=== PATIENT | male | born 1940 | race Hispanic/Latino ===

== ENCOUNTER 2022-02-12 09:10 | Inpatient (IN) | payer OTHER, MEDICARE ==
[2022-02-12] MEDS ORDERED: Sodium Chloride 0.65% Nasal 44 ML BOT EA NARE PRN (12:34)
[2022-02-12] MEDS ORDERED: Acetaminophen 650 MG Suppository PR PRN ×2 (12:34)
[2022-02-12] MEDS ORDERED: Promethazine HCl 25 MG SUPP PR PRN (12:34)
[2022-02-12] MEDS ORDERED: Bisacodyl 10 MG SUPP PR PRN (12:34)
[2022-02-12] MEDS ORDERED: Benzonatate 100 MG CAP PO PRN (12:34)
[2022-02-12] MEDS ORDERED: Cepastat Lozenges 1 LOZ PO PRN (12:34)
[2022-02-12] MEDS ORDERED: Senokot S 8.6-50 MG TAB PO PRN (12:34)
[2022-02-12] MEDS ORDERED: Calcium Carbonate 500 MG ChewTAB PO PRN (12:34)
[2022-02-12] MEDS ORDERED: Dextrose 50% Abboject 50 ML SYRINGE SLOW IVP PRN (12:34)
[2022-02-12] MEDS ORDERED: Bisacodyl 5 MG TAB PO PRN (12:34)
[2022-02-12] MEDS ORDERED: Ondansetron ODT 4 MG TAB PO PRN (12:34)
[2022-02-12] MEDS ORDERED: Artificial Tear Sol 15 ML BOT EA EYE PRN (12:34)
[2022-02-12] MEDS ORDERED: Guaifenesin DM 100-10/5 ML UDCUP PO PRN (12:34)
[2022-02-12] MEDS: Insulin Regular 300 UNITS/3 ML VIAL SC PRN (17:57)
[2022-02-12] MEDS: NIRMATRELVIR PO SCH (20:48)
[2022-02-12] MEDS: RITONAVIR PO SCH (20:48)
[2022-02-12] MEDS ORDERED: Atorvastatin Calcium 40 MG TAB PO SCH (21:00)
[2022-02-13 06:19] LABS: ALT (SGPT) 49 U/L (8-55); AST (SGOT) 30 U/L (5-34); Albumin 3.6 g/dL (3.4-4.8); Alkaline Phosphatase 92 U/L (40-110); Anion Gap 13 mmol/L (10-20); BUN (Urea Nitrogen) 31 mg/dL (8.4-25.7); Bilirubin, Total 0.5 mg/dL (0.2-1.2); Calc. Creatinine Clearance 26 mL/min (70-130); Calcium 9.4 mg/dL (7.8-10.44); Carbon Dioxide 22 mmol/L (23-31); Chloride 113 mmol/L (98-107); Estimated GFR 37; Globulin 3.2 g/dL (2.4-3.5); Glucose 133 mg/dL (83-110); Potassium 4.2 mmol/L (3.5-5.1); Protein, Total 6.8 g/dL (5.8-8.1); Sodium 144 mmol/L (136-145)
[2022-02-13 06:22] LABS: #Basophils 0.1 thou/uL (0.0-0.2); #Eosinphils 0.2 thou/uL (0.0-0.7); #Lymphocytes 2.1 thou/uL (1.20-3.40); #Monocytes 0.4 thou/uL (0.11-0.59); #Neutrophils 5.7 thou/uL (1.40-6.50); %Basophils 1.1 % (0.0-1.0); %Eosinophils 2.4 % (0.0-10.0); %Lymphocytes 24.4 % (21.0-51.0); %Monocytes 4.5 % (0.0-10.0); %Neutrophils 67.6 % (42.0-75.0); Hemoglobin 13.9 g/dL (14.0-18.0); Mean Corpuscular Hemoglobin 28.9 pg (27.0-31.0); Mean Platelet Volume 7.5 fL (7.4-10.4); Platelet Count 274 thou/uL (130-400); RBC Distribution Width 14.1 % (11.5-14.5); White Blood Cell (WBC) Count 8.4 thou/uL (4.8-10.8)
[2022-02-13] MEDS: Aspirin Chewable 81 MG TAB PO SCH ×2 (07:45→08:07)
[2022-02-13] MEDS: Enoxaparin Sodium 30 MG/0.3 ML SYRINGE SC SCH (08:06)
[2022-02-13] MEDS: Lisinopril 10 MG TAB PO SCH (08:06)
[2022-02-13] MEDS: NIRMATRELVIR PO SCH ×2 (08:09→19:59)
[2022-02-13] MEDS: RITONAVIR PO SCH ×2 (08:09→19:59)
[2022-02-13] MEDS: Insulin Regular 300 UNITS/3 ML VIAL SC PRN ×3 (11:20→20:07)
[2022-02-14] MEDS ORDERED: Dextrose 5% in Water 1,000 ML IV PRN (06:30)
[2022-02-14] MEDS: Lisinopril 10 MG TAB PO SCH (07:45)
[2022-02-14] MEDS: Enoxaparin Sodium 30 MG/0.3 ML SYRINGE SC SCH (07:45)
[2022-02-14] MEDS: Aspirin Chewable 81 MG TAB PO SCH (07:45)
[2022-02-14] MEDS: NIRMATRELVIR PO SCH ×2 (07:46→21:08)
[2022-02-14] MEDS: RITONAVIR PO SCH ×2 (07:46→21:08)
[2022-02-14] MEDS: HumaLOG 300 UNITS/3 ML VIAL SC PRN ×3 (12:03→21:09)
[2022-02-15] MEDS: HumaLOG 300 UNITS/3 ML VIAL SC PRN (05:29)
[2022-02-15] MEDS: Enoxaparin Sodium 30 MG/0.3 ML SYRINGE SC SCH (07:56)
[2022-02-15] MEDS: Lisinopril 10 MG TAB PO SCH (07:58)
[2022-02-15] MEDS: Aspirin Chewable 81 MG TAB PO SCH (07:58)
[2022-02-15] MEDS: NIRMATRELVIR PO SCH ×2 (08:00→21:01)
[2022-02-15] MEDS: RITONAVIR PO SCH ×2 (08:00→21:01)
[2022-02-15] MEDS: Acetaminophen 325 MG TAB PO PRN ×2 (08:08→16:59)
[2022-02-16] MEDS: Aspirin Chewable 81 MG TAB PO SCH (09:04)
[2022-02-16] MEDS: Enoxaparin Sodium 30 MG/0.3 ML SYRINGE SC SCH (09:04)
[2022-02-16] MEDS: Lisinopril 10 MG TAB PO SCH (09:05)
[2022-02-16] MEDS: HumaLOG 300 UNITS/3 ML VIAL SC PRN ×2 (12:11→17:07)
[2022-02-17] MEDS: Enoxaparin Sodium 30 MG/0.3 ML SYRINGE SC SCH (07:53)
[2022-02-17] MEDS: Aspirin Chewable 81 MG TAB PO SCH (07:55)
[2022-02-17] MEDS: Lisinopril 10 MG TAB PO SCH (10:11)
[2022-02-17] MEDS: Acetaminophen 325 MG TAB PO PRN (10:34)
[2022-02-17] MEDS: HumaLOG 300 UNITS/3 ML VIAL SC PRN (12:32)
[2022-02-17] MEDS ORDERED: Ondansetron ODT 4 MG TAB SL PRN (14:00)
[2022-02-18] MEDS: HumaLOG 300 UNITS/3 ML VIAL SC PRN ×4 (06:24→19:58)
[2022-02-18] MEDS: Lisinopril 5 MG TAB PO SCH (07:53)
[2022-02-18] MEDS: Aspirin Chewable 81 MG TAB PO SCH (07:53)
[2022-02-18] MEDS: Enoxaparin Sodium 30 MG/0.3 ML SYRINGE SC SCH (07:53)
[2022-02-18 09:01] LABS: %Basophils 0.8 % (0.0-1.0); %Eosinophils 3.5 % (0.0-10.0); %Lymphocytes 22.2 % (21.0-51.0); %Monocytes 4.6 % (0.0-10.0); Hemoglobin 13.6 g/dL (14.0-18.0); Mean Corpuscular HGB CONC 30.2 g/dL (32.0-36.0); Mean Corpuscular Hemoglobin 29.1 pg (27.0-31.0); Mean Corpuscular Volume 96.3 fL (78.0-98.0); Mean Platelet Volume 9.3 fL (7.4-10.4); Platelet Count 211 thou/uL (130-400); RBC Distribution Width 14.5 % (11.5-14.5); Red Blood Cell (RBC) Count 4.66 mill/uL (4.70-6.10); White Blood Cell (WBC) Count 6.8 thou/uL (4.8-10.8)
[2022-02-18 09:02] LABS: #Basophils 0.1 thou/uL (0.0-0.2); #Eosinphils 0.2 thou/uL (0.0-0.7); #Lymphocytes 1.5 thou/uL (1.20-3.40); #Monocytes 0.3 thou/uL (0.11-0.59); #Neutrophils 4.7 thou/uL (1.40-6.50)
[2022-02-18 09:18] LABS: Anion Gap 16 mmol/L (10-20); BUN (Urea Nitrogen) 58 mg/dL (8.4-25.7); Calc. Creatinine Clearance 22 mL/min (70-130); Calcium 9.4 mg/dL (7.8-10.44); Carbon Dioxide 20 mmol/L (23-31); Chloride 115 mmol/L (98-107); Estimated GFR 30; Glucose 211 mg/dL (83-110); Potassium 4.2 mmol/L (3.5-5.1); Sodium 147 mmol/L (136-145)
[2022-02-18] MEDS: Haloperidol 5 MG TAB PO SCH (20:02)
[2022-02-19] MEDS: HumaLOG 300 UNITS/3 ML VIAL SC PRN ×4 (06:15→21:23)
[2022-02-19] MEDS: Enoxaparin Sodium 30 MG/0.3 ML SYRINGE SC SCH (07:45)
[2022-02-19] MEDS: Lisinopril 5 MG TAB PO SCH (07:45)
[2022-02-19] MEDS: Haloperidol 5 MG TAB PO SCH ×2 (07:46→21:07)
[2022-02-19] MEDS: Aspirin Chewable 81 MG TAB PO SCH (07:47)
[2022-02-19] MEDS ORDERED: Lantus 1000 UNITS/10 ML VIAL SC SCH (09:30)
[2022-02-19 09:39] LABS: Anion Gap 17 mmol/L (10-20); BUN (Urea Nitrogen) 52 mg/dL (8.4-25.7); Calc. Creatinine Clearance 26 mL/min (70-130); Calcium 9.4 mg/dL (7.8-10.44); Carbon Dioxide 16 mmol/L (23-31); Chloride 119 mmol/L (98-107); Estimated GFR 38; Glucose 193 mg/dL (83-110); Potassium 4.7 mmol/L (3.5-5.1); Sodium 147 mmol/L (136-145)
[2022-02-20] MEDS: Aspirin Chewable 81 MG TAB PO SCH (09:11)
[2022-02-20] MEDS: Haloperidol 5 MG TAB PO SCH ×2 (09:11→20:23)
[2022-02-20] MEDS: Enoxaparin Sodium 30 MG/0.3 ML SYRINGE SC SCH (09:11)
[2022-02-20] MEDS: Lantus 1000 UNITS/10 ML VIAL SC SCH (09:12)
[2022-02-20] MEDS: Lisinopril 5 MG TAB PO SCH (09:17)
[2022-02-20] MEDS: HumaLOG 300 UNITS/3 ML VIAL SC PRN ×2 (11:28→17:01)
[2022-02-21 05:50] LABS: #Eosinphils 0.3 thou/uL (0.0-0.7); #Lymphocytes 1.8 thou/uL (1.20-3.40); #Monocytes 0.4 thou/uL (0.11-0.59); #Neutrophils 4.7 thou/uL (1.40-6.50); %Basophils 0.6 % (0.0-1.0); %Eosinophils 4.8 % (0.0-10.0); %Lymphocytes 24.3 % (21.0-51.0); %Monocytes 5.6 % (0.0-10.0); %Neutrophils 64.7 % (42.0-75.0); Hemoglobin 12.4 g/dL (14.0-18.0); Mean Corpuscular HGB CONC 32.3 g/dL (32.0-36.0); Mean Corpuscular Hemoglobin 29.6 pg (27.0-31.0); Mean Corpuscular Volume 91.5 fL (78.0-98.0); Mean Platelet Volume 9.4 fL (7.4-10.4); Platelet Count 219 thou/uL (130-400); RBC Distribution Width 14.1 % (11.5-14.5); Red Blood Cell (RBC) Count 4.19 mill/uL (4.70-6.10); White Blood Cell (WBC) Count 7.2 thou/uL (4.8-10.8)
[2022-02-21 06:05] LABS: Anion Gap 15 mmol/L (10-20); BUN (Urea Nitrogen) 41 mg/dL (8.4-25.7); Calc. Creatinine Clearance 30 mL/min (70-130); Calcium 9.2 mg/dL (7.8-10.44); Carbon Dioxide 21 mmol/L (23-31); Chloride 114 mmol/L (98-107); Estimated GFR 45; Glucose 135 mg/dL (83-110); Sodium 146 mmol/L (136-145)
[2022-02-21] MEDS: Lantus 1000 UNITS/10 ML VIAL SC SCH (08:00)
[2022-02-21] MEDS: Enoxaparin Sodium 30 MG/0.3 ML SYRINGE SC SCH (08:00)
[2022-02-21] MEDS: Haloperidol 5 MG TAB PO SCH ×2 (08:03→21:54)
[2022-02-21] MEDS: Aspirin Chewable 81 MG TAB PO SCH (08:03)
[2022-02-21] MEDS: Lisinopril 5 MG TAB PO SCH (08:03)
[2022-02-21] MEDS: HumaLOG 300 UNITS/3 ML VIAL SC PRN ×3 (11:54→21:54)
[2022-02-22] MEDS: Enoxaparin Sodium 30 MG/0.3 ML SYRINGE SC SCH (07:40)
[2022-02-22] MEDS: Lisinopril 5 MG TAB PO SCH (07:40)
[2022-02-22] MEDS: Haloperidol 5 MG TAB PO SCH ×2 (07:40→20:44)
[2022-02-22] MEDS: Aspirin Chewable 81 MG TAB PO SCH (07:40)
[2022-02-22] MEDS: Lantus 1000 UNITS/10 ML VIAL SC SCH (07:42)
[2022-02-22] MEDS: Acetaminophen 325 MG TAB PO PRN (09:07)
[2022-02-22] MEDS: HumaLOG 300 UNITS/3 ML VIAL SC PRN (16:34)
[2022-02-23] MEDS: Haloperidol 5 MG TAB PO SCH ×2 (07:51→20:41)
[2022-02-23] MEDS: Enoxaparin Sodium 30 MG/0.3 ML SYRINGE SC SCH (07:51)
[2022-02-23] MEDS: Lantus 1000 UNITS/10 ML VIAL SC SCH (07:51)
[2022-02-23] MEDS: Aspirin Chewable 81 MG TAB PO SCH (07:51)
[2022-02-23] MEDS: Lisinopril 5 MG TAB PO SCH (07:52)
[2022-02-23] MEDS: HumaLOG 300 UNITS/3 ML VIAL SC PRN ×3 (11:14→20:42)
[2022-02-24 05:39] LABS: Hemoglobin 12.3 g/dL (14.0-18.0); Mean Corpuscular HGB CONC 30.9 g/dL (32.0-36.0); Mean Corpuscular Volume 93.8 fL (78.0-98.0); Mean Platelet Volume 9.3 fL (7.4-10.4); Platelet Count 213 thou/uL (130-400); Red Blood Cell (RBC) Count 4.24 mill/uL (4.70-6.10); White Blood Cell (WBC) Count 7.6 thou/uL (4.8-10.8)
[2022-02-24 05:41] LABS: Anion Gap 16 mmol/L (10-20); BUN (Urea Nitrogen) 44 mg/dL (8.4-25.7); Calc. Creatinine Clearance 28 mL/min (70-130); Calcium 9.3 mg/dL (7.8-10.44); Carbon Dioxide 20 mmol/L (23-31); Chloride 113 mmol/L (98-107); Estimated GFR 42; Glucose 124 mg/dL (83-110); Potassium 4.5 mmol/L (3.5-5.1); Sodium 144 mmol/L (136-145)
[2022-02-24 06:24] LABS: #Basophils 0.1 thou/uL (0.0-0.2); #Eosinphils 0.4 thou/uL (0.0-0.7); #Lymphocytes 2.2 thou/uL (1.20-3.40); #Monocytes 0.5 thou/uL (0.11-0.59); #Neutrophils 4.3 thou/uL (1.40-6.50); %Basophils 1.3 % (0.0-1.0); %Eosinophils 5.5 % (0.0-10.0); %Monocytes 6.9 % (0.0-10.0); %Neutrophils 57.3 % (42.0-75.0)
[2022-02-24] MEDS: Aspirin Chewable 81 MG TAB PO SCH (08:04)
[2022-02-24] MEDS: Enoxaparin Sodium 30 MG/0.3 ML SYRINGE SC SCH (08:04)
[2022-02-24] MEDS: Haloperidol 5 MG TAB PO SCH ×2 (08:04→20:38)
[2022-02-24] MEDS: Lisinopril 5 MG TAB PO SCH (08:05)
[2022-02-24] MEDS: Lantus 1000 UNITS/10 ML VIAL SC SCH (08:05)
[2022-02-24] MEDS: HumaLOG 300 UNITS/3 ML VIAL SC PRN ×3 (11:55→20:49)
[2022-02-25] MEDS: Enoxaparin Sodium 30 MG/0.3 ML SYRINGE SC SCH (07:58)
[2022-02-25] MEDS: Aspirin Chewable 81 MG TAB PO SCH (07:59)
[2022-02-25] MEDS: Haloperidol 5 MG TAB PO SCH ×2 (07:59→21:04)
[2022-02-25] MEDS: Lantus 1000 UNITS/10 ML VIAL SC SCH (07:59)
[2022-02-25] MEDS: HumaLOG 300 UNITS/3 ML VIAL SC PRN ×2 (11:48→16:48)
[2022-02-26] MEDS: Enoxaparin Sodium 30 MG/0.3 ML SYRINGE SC SCH (08:32)
[2022-02-26] MEDS: Aspirin Chewable 81 MG TAB PO SCH (08:33)
[2022-02-26] MEDS: Lantus 1000 UNITS/10 ML VIAL SC SCH (08:33)
[2022-02-26] MEDS: Haloperidol 5 MG TAB PO SCH ×2 (08:33→20:10)
[2022-02-26] MEDS: HumaLOG 300 UNITS/3 ML VIAL SC PRN ×2 (11:21→16:26)
[2022-02-27] MEDS: HumaLOG 300 UNITS/3 ML VIAL SC PRN ×3 (05:16→16:20)
[2022-02-27 05:43] LABS: #Basophils 0.1 thou/uL (0.0-0.2); #Eosinphils 0.2 thou/uL (0.0-0.7); #Lymphocytes 1.8 thou/uL (1.20-3.40); #Monocytes 0.6 thou/uL (0.11-0.59); #Neutrophils 5.5 thou/uL (1.40-6.50); %Basophils 0.9 % (0.0-1.0); %Eosinophils 2.7 % (0.0-10.0); %Lymphocytes 22.4 % (21.0-51.0); %Monocytes 6.7 % (0.0-10.0); %Neutrophils 67.4 % (42.0-75.0); Mean Corpuscular HGB CONC 31.7 g/dL (32.0-36.0); Mean Corpuscular Volume 94.6 fL (78.0-98.0); Mean Platelet Volume 8.3 fL (7.4-10.4); Platelet Count 258 thou/uL (130-400); RBC Distribution Width 14.3 % (11.5-14.5); Red Blood Cell (RBC) Count 4.35 mill/uL (4.70-6.10); White Blood Cell (WBC) Count 8.1 thou/uL (4.8-10.8)
[2022-02-27 05:49] LABS: Anion Gap 18 mmol/L (10-20); BUN (Urea Nitrogen) 38 mg/dL (8.4-25.7); Calc. Creatinine Clearance 28 mL/min (70-130); Calcium 10.2 mg/dL (7.8-10.44); Carbon Dioxide 24 mmol/L (23-31); Chloride 115 mmol/L (98-107); Estimated GFR 42; Glucose 156 mg/dL (83-110); Potassium 4.8 mmol/L (3.5-5.1); Sodium 152 mmol/L (136-145)
[2022-02-27] MEDS: Lantus 1000 UNITS/10 ML VIAL SC SCH (07:37)
[2022-02-27] MEDS: Haloperidol 5 MG TAB PO SCH ×2 (07:37→20:03)
[2022-02-27] MEDS: Aspirin Chewable 81 MG TAB PO SCH (07:37)
[2022-02-27] MEDS: Enoxaparin Sodium 30 MG/0.3 ML SYRINGE SC SCH (07:37)
[2022-02-28] MEDS: HumaLOG 300 UNITS/3 ML VIAL SC PRN ×2 (05:39→11:16)
[2022-02-28] MEDS: Enoxaparin Sodium 30 MG/0.3 ML SYRINGE SC SCH (07:45)
[2022-02-28] MEDS: Lantus 1000 UNITS/10 ML VIAL SC SCH (07:46)
[2022-02-28] MEDS: Aspirin Chewable 81 MG TAB PO SCH (07:52)
[2022-02-28] MEDS: Haloperidol 5 MG TAB PO SCH ×2 (07:53→21:06)
[2022-03-01] MEDS: Enoxaparin Sodium 30 MG/0.3 ML SYRINGE SC SCH (08:30)
[2022-03-01] MEDS: Aspirin Chewable 81 MG TAB PO SCH (08:31)
[2022-03-01] MEDS: Haloperidol 5 MG TAB PO SCH ×2 (08:32→21:06)
[2022-03-01] MEDS: Lantus 1000 UNITS/10 ML VIAL SC SCH (08:32)
[2022-03-01] MEDS: Acetaminophen 325 MG TAB PO PRN (09:56)
[2022-03-01] MEDS: HumaLOG 300 UNITS/3 ML VIAL SC PRN (11:33)
[2022-03-02] MEDS: Lantus 1000 UNITS/10 ML VIAL SC SCH (08:21)
[2022-03-02] MEDS: Aspirin Chewable 81 MG TAB PO SCH (08:21)
[2022-03-02] MEDS: Enoxaparin Sodium 30 MG/0.3 ML SYRINGE SC SCH (08:21)
[2022-03-02] MEDS: Haloperidol 5 MG TAB PO SCH (08:21)
[2022-03-02 08:58] VITALS: TEMP 97.9
[2022-03-02 13:16] VITALS: BP 134/69
[2022-03-02 14:35] LABS: #Basophils 0.1 thou/uL (0.0-0.2); #Lymphocytes 1.3 thou/uL (1.20-3.40); #Monocytes 0.6 thou/uL (0.11-0.59); #Neutrophils 6.6 thou/uL (1.40-6.50); %Basophils 0.8 % (0.0-1.0); %Eosinophils 0.2 % (0.0-10.0); %Lymphocytes 15.3 % (21.0-51.0); %Monocytes 6.9 % (0.0-10.0); %Neutrophils 76.9 % (42.0-75.0); Hemoglobin 13.4 g/dL (14.0-18.0); Mean Corpuscular HGB CONC 30.3 g/dL (32.0-36.0); Mean Corpuscular Hemoglobin 29.4 pg (27.0-31.0); Mean Corpuscular Volume 96.9 fL (78.0-98.0); Mean Platelet Volume 8.9 fL (7.4-10.4); Platelet Count 261 thou/uL (130-400); RBC Distribution Width 14.7 % (11.5-14.5); Red Blood Cell (RBC) Count 4.57 mill/uL (4.70-6.10); White Blood Cell (WBC) Count 8.6 thou/uL (4.8-10.8)
[2022-03-02 14:47] LABS: Anion Gap 18 mmol/L (10-20); BUN (Urea Nitrogen) 64 mg/dL (8.4-25.7); Calc. Creatinine Clearance 23 mL/min (70-130); Calcium 9.4 mg/dL (7.8-10.44); Carbon Dioxide 18 mmol/L (23-31); Chloride 120 mmol/L (98-107); Estimated GFR 32; Glucose 247 mg/dL (83-110); Sodium 152 mmol/L (136-145)
== END 2022-03-02 15:35 | disposition short-term general hospital (02) | DRG 56 ==
LOC: NAV ACUTE 11:26
PROVIDERS: ADMIT Family Medicine; ATTEND Family Medicine
PROC: 8E0ZXY6 Isolation (ICD-10-PCS; principal; 2022-02-12)
DX: I69.334 Monoplegia of upper limb following cerebral infarction affecting left non-dominant side (principal); U07.1 COVID-19; E87.0 Hyperosmolality and hypernatremia; E78.5 Hyperlipidemia, unspecified; M62.422 Contracture of muscle, left upper arm; E11.65 Type 2 diabetes mellitus with hyperglycemia; R53.81 Other malaise; I12.9 Hypertensive chronic kidney disease with stage 1 through stage 4 chronic kidney disease, or unspecified chronic kidney disease; E11.22 Type 2 diabetes mellitus with diabetic chronic kidney disease; N18.32 Chronic kidney disease, stage 3b; Z79.82 Long term (current) use of aspirin; Z79.899 Other long term (current) drug therapy; Z90.49 Acquired absence of other specified parts of digestive tract; Z98.890 Other specified postprocedural states; I69.391 Dysphagia following cerebral infarction
CPT/HCPCS: 36415; 36416; 80048; 80053; 85025; J1650; J1815